=== PATIENT | female | born 1975 ===

== ENCOUNTER 2021-12-09 10:32 | Outpatient (CLI) | payer OTHER ==
--- NOTE | 2021-12-09 17:40 | MRI Report ---
PROCEDURE: Wrist RT W/O INDICATIONS: RIGHT WRIST PAIN TECHNIQUE: Noncontrast coronal proton density fast spin echo and T2 fast spin echo with fat saturation; coronal 3-D gradient echo, axial T1 spin echo and T2 fast spin echo with fat saturation, sagittal T1 spin ech o through the wrist. COMPARISON: None. FINDINGS: Image quality: Excellent. Bones and cartilage: The carpal bones are normally aligned. No bone marrow contusions or fractures. No evidence for avascular necrosis. Overlying cartilage surfaces appear normal. Carpal ligaments: The scapholunate and lunotriquetral ligaments appear intact. In the absence of in tra-articular contrast, the extrinsic carpal ligaments are not well identified. On sagittal images, the pisohamate ligament appears intact. Triangular fibrocartilage complex: There is signal abnormality involving ulnar periphery of triangle of fibrocartilage suggestive of TFCC tear near its ulnar insertion. The adjacent meniscal homolog glenny ears normal in the absence of intra-articular contrast. The extensor carpi ulnaris tendon is normal in location and morphology. Tendons and soft tissues: The carpal tunnel structures appear normal, including the median nerve. T he ulnar nerve appears normal within Guyon's canal. All six extensor tendon compartments demonstrate normal morphology, without pathologic tendon sheath fluid. No soft tissue ganglion cysts. IMPRESSION: 1. No marrow edema. No fracture or dislocation. No suspicious bony lesion. 2. Suggestion of focal triangular fibrocartilage tear near its ulnar insertion. 3. Scapholunate and lunotriquetral ligaments are intact. 4. Extensor and flexor tendons are grossly intact. Reviewed by: Mikey Sanchez MD on 12/09/2021 5:39 PM PDT Approved by: Mikey Sanchez MD on 12/09/2021 5:39 PM PDT Station ID: [id number]
== END 2021-12-09 10:33 | disposition home or self-care (01) ==
LOC: DI 10:32
PROVIDERS: ATTEND Student in an Organized Health Care Education/Training Program
DX: M25.531 Pain in right wrist (principal)